=== PATIENT | female | born 1990 | race Caucasian/White ===

== ENCOUNTER 2024-06-14 23:22 | Emergency (ER) | payer BC ==
[~2024-06-14] VITALS: Ht 167.6 cm; Wt 65.8 kg
[2024-06-15] MEDS ORDERED: AMOX-430 PO (00:11)
[2024-06-15] MEDS ORDERED: KETOROLAC TROMETHAMINE 30 MG INJ ONE (00:16)
[2024-06-15] MEDS ORDERED: AMOXICILLIN-CLAVUL 875-125MG TABLET ONE (00:16)
[2024-06-15] MEDS: KETOROLAC TROMETHAMINE 30 MG INJ IM ONE (00:28)
[2024-06-15] MEDS: AMOXICILLIN-CLAVUL 875-125MG TABLET PO ONE (00:28)
[2024-06-15 01:05] VITALS: BP 130/85; TEMP 97.7; O2SAT 98
== END 2024-06-15 00:40 | disposition home or self-care (01) ==
LOC: ER 23:35
DX: S61.031A Puncture wound without foreign body of right thumb without damage to nail, initial encounter (principal); Z79.899 Other long term (current) drug therapy; W54.0XXA Bitten by dog, initial encounter; Y93.89 Activity, other specified; Y92.89 Other specified places as the place of occurrence of the external cause; Y99.8 Other external cause status
CPT/HCPCS: 99283; 96372; J1885; A4606; A4663